=== PATIENT | female | born 1970 | race Caucasian/White ===

== ENCOUNTER → 2016-06-27 | Outpatient (REF) | payer MEDICARE, OTHER | LOC: M SFHCLERA 11:53 | PROVIDERS: ATTEND Nurse Practitioner Family | DX: R30.0 Dysuria (principal); B37.9 Candidiasis, unspecified; R10.30 Lower abdominal pain, unspecified; R61 Generalized hyperhidrosis; R68.83 Chills (without fever); R19.7 Diarrhea, unspecified; R11.0 Nausea; Z79.899 Other long term (current) drug therapy | CPT/HCPCS: 81002; 87086; 87491; 87591; G0463 ==

== ENCOUNTER → 2016-06-28 | Outpatient (REF) | payer MEDICARE, OTHER | END | disposition home or self-care (01) | LOC: M SFHCLERA 13:56 | PROVIDERS: ATTEND Family Medicine | DX: R30.0 Dysuria (principal) ==

== ENCOUNTER → 2016-07-06 | Outpatient (REF) | payer MEDICARE, OTHER ==
[2016-07-06 11:44] LABS: CALCIUM OXALATE CRYSTALS SMALL
[2016-07-06 12:16] LABS: ALBUMIN 3.7 GM/DL (3.2-5.2); ANION GAP 8 MEQ/L (8-16); BLOOD UREA NITROGEN 14 MG/DL (7-18); CALCIUM LEVEL 8.8 MG/DL (8.5-10.1); CARBON DIOXIDE LEVEL 25 MEQ/L (21-32); CHLORIDE LEVEL 112 MEQ/L (98-107); CREATININE FOR GFR 0.89 MG/DL (0.55-1.02); GLOMERULAR FILTRATION RATE > 60.0 (>58); GLUCOSE, FASTING 63 MG/DL (70-105); PHOSPHORUS LEVEL 2.1 MG/DL (2.5-4.9); POTASSIUM SERUM 4.5 MEQ/L (3.5-5.1); SODIUM LEVEL 145 MEQ/L (136-145)
== END ==
LOC: M SFHCLERA 09:12
PROVIDERS: ATTEND Family Medicine
DX: R31.9 Hematuria, unspecified (principal)
CPT/HCPCS: 80069; 81001; G0463

== ENCOUNTER → 2016-08-08 | Outpatient (REF) | payer MEDICARE, OTHER | LOC: M SFHCLERA 16:02 | PROVIDERS: ATTEND Nurse Practitioner Family | DX: J11.1 Influenza due to unidentified influenza virus with other respiratory manifestations (principal) ==

== ENCOUNTER → 2016-09-03 | Outpatient (CLI) | payer MEDICARE, OTHER ==
--- NOTE | 2016-09-03 14:55 | REP ---
Clinical: Pain with recent hyperextension injury. Technique: AP, lateral, bilateral oblique, and sunrise views of the right knee. Findings: Mild age-related changes are appreciated. No acute fracture or dislocation. No significant overt osteoarthritic degenerative changes. No obvious effusion. Impression: Age-related changes noted. No acute fracture or dislocation. Signed by Hussein Luciano MD 09/03/2016 02:47 P
== END ==
LOC: M LRY 14:09
PROVIDERS: ATTEND Family Medicine
DX: M17.11 Unilateral primary osteoarthritis, right knee (principal)
CPT/HCPCS: 73564; G0463

== ENCOUNTER → 2016-09-19 | Outpatient (CLI) | payer MEDICARE, OTHER ==
--- NOTE | 2016-09-19 12:42 | REP ---
MRI RIGHT KNEE WITHOUT CONTRAST: 09/19/2016. Comparison: x-ray 09/03/2016. Clinical history: Knee pain and swelling. Clinical exam suggests LCL and lateral meniscal tear. Technique: Axial fat suppressed PD with coronal PD, fat suppressed PD, sagittal PD, T2 STIR and gradient echo images. Both the ACL and PCL show intact fibers along their course. Some slight increased signal in distal fibers of the ACL may reflect strain but there is no definite complete tear. There is abundant fluid in the joint within the intercondylar notch, medial and lateral compartments as well as into the suprapatellar bursa and its recesses. The medial meniscus shows intrameniscal grade 1 signal posterior horn. There is some fluid posterior to the posterior horn and deep to the capsule suggesting meniscocapsular injury. There is no signal communicating to an articular surface of the medial meniscus that would suggest a tear. There is no loose body or bucket-handle injury. MCL intact. There is bowing of the medial patellar retinaculum due to effusion and suprapatellar bursa extending into bursal recess adjacent to the femoral condyle. Some attenuation of the patellar retinaculum noted. There is a popliteal fossa cyst along the medial head of the gastrocnemius behind the medial femoral condyle. This is felt related to that meniscal capsular injury. Grade 1 chondromalacia without osteochondral defect, bone bruise or fracture noted. The lateral compartment shows some intrameniscal grade 1 signal in the anterior and posterior horns. There is no definite tear of the lateral meniscus or its attachments. I see no loose body. There is chondromalacia grade 1 in the femoral condyle and tibial plateau. No adjacent bone bruise. There is one focal chondral defect anteriorly without a loose body. The lateral collateral ligamentous complex show no definite tear but there is fluid deep to the lateral patellar retinaculum. Bowing of the lateral patellar retinaculum due to large amount of fluid in the bursal recess deep to the retinaculum and adjacent to the lateral femoral condyle. Large suprapatellar bursa without a definite plica. There is chondromalacia grade 2-3 in the lateral facet and grade 1 medial facet. No patellar subluxation or fracture. There is a suprapatellar plica just medial to the midline. Extensor mechanism shows quadriceps and patellar tendons intact. Impression: 1. Extensive joint effusion all throughout the knee and suprapatellar bursa, its recesses, intercondylar notch and the medial lateral compartments. There is a small chondral defect anteriorly in the lateral tibial plateau without loose body, grade 1 chondromalacia in the medial lateral compartments otherwise. 2. Mild strain distal fibers ACL with the ACL and PCL intact with contiguous fibers and no tear. 3. Meniscocapsular injury with fluid deep to the capsule and behind the posterior horn of the medial meniscus, there is a popliteal fossa cyst behind that medial femoral condyle quite large, and felt related to that meniscocapsular injury. 4. MCL intact. LCL with strain but no definite tear and both retinacula bowed by suprapatellar bursa effusion. Chondromalacia is most severe patellofemoral joint with a few millimeters patella subluxation laterally. No bone bruise or fracture. Signed by Gaurav Gonzalez MD 09/19/2016 08:25 P
== END ==
LOC: M RAD 08:14
PROVIDERS: ATTEND Family Medicine
DX: M25.561 Pain in right knee (principal)

== ENCOUNTER 2016-11-07 05:09 | Emergency (ER) | payer MEDICARE, OTHER ==
[~2016-11-07] VITALS: Ht 160 cm; Wt 69.9 kg
[2016-11-07] MEDS ORDERED: DEPA250T32 PO (05:35)
[2016-11-07] MEDS ORDERED: BACL10TA2 PO (05:35)
[2016-11-07] MEDS ORDERED: TOPA50TA7 PO (05:35)
[2016-11-07] MEDS ORDERED: OMEP40CA2 PO (05:35)
[2016-11-07] MEDS ORDERED: CENTTAB36 PO (05:35)
[2016-11-07] MEDS ORDERED: WELL100T2 PO (05:35)
[2016-11-07] MEDS ORDERED: CALC500C8 PO (05:35)
[2016-11-07] MEDS ORDERED: pain medication (05:36)
[2016-11-07] MEDS ORDERED: NS 1,000 ML IV ONE (06:00)
[2016-11-07 06:29] LABS: BASO % 0.3 % (0.0-1.0); EOS % 0.4 % (0.0-3.0); LARGE UNSTAINED CELL # 0.1 K/mm3 (0.0-0.4); LARGE UNSTAINED CELL % 0.7 % (0.0-4.0); LYMPH % 10.1 % (24.0-44.0); MEAN CORPUSCULAR HEMOGLOBIN 32.6 pg (27.0-33.0); MEAN CORPUSCULAR HGB CONC 33.9 g/dl (32.0-36.5); MEAN CORPUSCULAR VOLUME 96.1 fl (80.0-96.0); MONO # 0.3 K/mm3 (0.0-0.8); MONO % 2.7 % (0.0-5.0); NEUTROPHILS # 8.4 K/mm3 (1.8-7.7); NEUTROPHILS % 85.8 % (36.0-66.0); PLATELET COUNT, AUTOMATED 234 k/mm3 (150-450); RED CELL DISTRIBUTION WIDTH 11.6 % (11.5-14.5); WHITE BLOOD COUNT 9.8 K/mm3 (4.0-10.0)
[2016-11-07] MEDS ORDERED: ONDANSETRON 4MG/2ML VIAL (J2405) IV ONE (06:30)
[2016-11-07 06:45] LABS: ALBUMIN 3.9 GM/DL (3.2-5.2); ALBUMIN/GLOBULIN RATIO 1.15 (1.00-1.93); ALKALINE PHOSPHATASE 75 U/L (45-117); ALT/SGPT 26 U/L (12-78); AMYLASE 81 U/L (25-115); ANION GAP 9 MEQ/L (8-16); AST/SGOT 14 U/L (15-37); BILIRUBIN,DIRECT 0.2 MG/DL (0.0-0.2); BILIRUBIN,TOTAL 0.7 MG/DL (0.2-1.0); BLOOD UREA NITROGEN 15 MG/DL (7-18); CALCIUM LEVEL 9.3 MG/DL (8.5-10.1); CARBON DIOXIDE LEVEL 23 MEQ/L (21-32); CHLORIDE LEVEL 108 MEQ/L (98-107); CREATININE FOR GFR 0.99 MG/DL (0.55-1.02); GLOMERULAR FILTRATION RATE > 60.0 (>58); GLUCOSE, FASTING 175 MG/DL (70-105); POTASSIUM SERUM 3.9 MEQ/L (3.5-5.1); SODIUM LEVEL 140 MEQ/L (136-145); TOTAL PROTEIN 7.3 GM/DL (6.4-8.2)
[2016-11-07] MEDS ORDERED: METOCLOPRAMIDE INJ 10MG/2ML VIAL (J2765) IV ONE (07:15)
[2016-11-07] MEDS ORDERED: GI COCKTAIL 50ML BTL(HYOSCYAMINE/MAALOX/LIDOCAINE VISCOUS)(1:3:1) PO ONE (07:15)
[2016-11-07] MEDS ORDERED: PANTOPRAZOLE 40MG INJ (PROTONIX) (C9113) IV ONE (08:30)
--- NOTE | 2016-11-07 08:54 | REP ---
Clinical: Epigastric and abdominal pain. Technique: Upright view of the chest with supine and upright views of the abdomen and pelvis. Findings: Frontal upright view of the chest demonstrates no acute cardiopulmonary process or free air below the diaphragm to suspect pneumoperitoneum. Supine and upright views of the abdomen and pelvis demonstrate nonspecific bowel gas pattern without obstruction or perforation. No organomegaly. No abnormal calcifications. Evidence for prior lumbosacral laminectomy and fixation. Impression: Nonspecific bowel gas pattern. Signed by Hussein Luciano MD 11/07/2016 08:46 A
[2016-11-07] MEDS ORDERED: ZOFR4TAB3 PO (09:12)
[2016-11-07 09:28] VITALS: BP 135/77
== END 2016-11-07 09:29 | disposition home or self-care (01) ==
LOC: M ED 07:23
DX: R11.2 Nausea with vomiting, unspecified (principal); Z98.84 Bariatric surgery status; R51 Headache; E03.9 Hypothyroidism, unspecified; G89.29 Other chronic pain; F32.9 Major depressive disorder, single episode, unspecified; Z79.899 Other long term (current) drug therapy; Z88.8 Allergy status to other drugs, medicaments and biological substances; Z88.5 Allergy status to narcotic agent
CPT/HCPCS: 74022; 80048; 80076; 81001; 82150; 83690; 85025; 87086; 96361; 96374; 96375; 99283; C9113; J2405; J2765

== ENCOUNTER → 2017-04-08 | Outpatient (REF) | payer MEDICARE, OTHER ==
[~2017-04-08] MED LIST: BACL10TA2 PO; CALC500C8 PO; CENTTAB36 PO; DEPA250T32 PO; OMEP40CA2 PO; TOPA50TA8 PO; WELL100T2 PO; ZOFR4TAB3 PO; pain medication
== END ==
LOC: M SFHCLERA 17:44
PROVIDERS: ATTEND Family Medicine
DX: Z12.4 Encounter for screening for malignant neoplasm of cervix (principal); R87.610 Atypical squamous cells of undetermined significance on cytologic smear of cervix (ASC-US)
CPT/HCPCS: 87624; G0123; G0463

== ENCOUNTER → 2017-05-18 | Outpatient (REF) | payer MEDICARE, OTHER ==
[2017-05-18 18:41] LABS: ALBUMIN 3.7 GM/DL (3.2-5.2); ALBUMIN/GLOBULIN RATIO 1.19 (1.00-1.93); ALKALINE PHOSPHATASE 72 U/L (45-117); ALT/SGPT 32 U/L (12-78); ANION GAP 7 MEQ/L (8-16); AST/SGOT 13 U/L (7-37); BILIRUBIN,TOTAL 0.5 MG/DL (0.2-1.0); BLOOD UREA NITROGEN 17 MG/DL (7-18); CARBON DIOXIDE LEVEL 27 MEQ/L (21-32); CHLORIDE LEVEL 107 MEQ/L (98-107); GLOMERULAR FILTRATION RATE > 60.0 (>58); GLUCOSE, FASTING 84 MG/DL (70-105); POTASSIUM SERUM 4.7 MEQ/L (3.5-5.1); SODIUM LEVEL 141 MEQ/L (136-145); TOTAL PROTEIN 6.8 GM/DL (6.4-8.2)
[2017-05-18 19:00] LABS: MEAN CORPUSCULAR HEMOGLOBIN 32.8 pg (27.0-33.0); MEAN CORPUSCULAR HGB CONC 33.4 g/dl (32.0-36.5); MEAN CORPUSCULAR VOLUME 98.1 fl (80.0-96.0); PLATELET COUNT, AUTOMATED 234 10^3/uL (150-450); RED CELL DISTRIBUTION WIDTH 11.5 % (11.5-14.5); WHITE BLOOD COUNT 6.6 10^3/uL (4.0-10.0)
== END ==
LOC: M SFHCLERA 11:51
PROVIDERS: ATTEND Family Medicine
DX: F60.3 Borderline personality disorder (principal); E03.9 Hypothyroidism, unspecified; M54.2 Cervicalgia; G43.709 Chronic migraine without aura, not intractable, without status migrainosus; J31.0 Chronic rhinitis; K21.9 Gastro-esophageal reflux disease without esophagitis
CPT/HCPCS: 80053; 84443; 85027; G0463

== ENCOUNTER → 2017-07-26 | Outpatient (REF) | payer MEDICARE, OTHER ==
[2017-07-27 13:41] LABS: INFLUENZA A AMPLIFICATION NEGATIVE (NEGATIVE); INFLUENZA B AMPLIFICATION NEGATIVE (NEGATIVE)
== END ==
LOC: M SFHCLERA 13:12
DX: J02.9 Acute pharyngitis, unspecified (principal); R68.89 Other general symptoms and signs
CPT/HCPCS: 87502

== ENCOUNTER → 2017-08-31 | Outpatient (REF) | payer MEDICARE, OTHER | LOC: M SFHCLERA 12:36 | DX: J02.9 Acute pharyngitis, unspecified (principal) ==

== ENCOUNTER 2017-09-23 09:35 | Emergency (ER) | payer MEDICARE, OTHER ==
[2017-09-23] MEDS: HYDROmorphone HCL 1 MG/ML SYRINGE (J1170) IV (12:17)
[2017-09-23] MEDS: ONDANSETRON 4MG/2ML VIAL (J2405) IV (12:17)
[2017-09-23] MEDS: NS 1,000 ML IV (12:17)
[2017-09-23 12:23] LABS: KETONE, URINE AUTO RFX NEGATIVE (NEGATIVE); LEUKOCYTE ESTERASE UR AUTO RFX NEGATIVE (NEGATIVE); MUCUS, URINE RFX SMALL (NEGATIVE); NITRITE, URINE AUTO RFX NEGATIVE (NEGATIVE); RBC, URINE AUTO RFX 56 /HPF (0-3); SPECIFIC GRAVITY UR AUTO RFX 1.009 (1.002-1.035); SQUAM EPITHELIAL CELL UR AURFX 1 /HPF (0-6); WBC, URINE AUTO RFX 10 /HPF (0-3)
[2017-09-23 12:25] LABS: BASO % 0.5 % (0.0-1.0); EOS # 0.1 10^3/uL (0.0-0.50); HEMATOCRIT 38.3 % (36.0-47.0); HEMOGLOBIN 13.3 g/dl (12.0-15.5); IMMATURE GRANULOCYTE % 0.3 % (0-3.0); LYMPH # 1.6 10^3/uL (1.5-4.5); LYMPH % 25.2 % (24.0-44.0); MEAN CORPUSCULAR HEMOGLOBIN 31.7 pg (27.0-33.0); MEAN CORPUSCULAR HGB CONC 34.7 g/dl (32.0-36.5); MEAN CORPUSCULAR VOLUME 91.2 fl (80.0-96.0); MONO # 0.4 10^3/uL (0.0-0.8); MONO % 6.2 % (0.0-5.0); NEUTROPHILS # 4.3 10^3/uL (1.8-7.7); NEUTROPHILS % 65.8 % (36.0-66.0); PLATELET COUNT, AUTOMATED 251 10^3/uL (150-450); RED CELL DISTRIBUTION WIDTH 11.6 % (11.5-14.5); WHITE BLOOD COUNT 6.5 10^3/uL (4.0-10.0)
[2017-09-23 12:50] LABS: ALBUMIN 4.1 GM/DL (3.2-5.2); ALBUMIN/GLOBULIN RATIO 1.08 (1.00-1.93); ALKALINE PHOSPHATASE 81 U/L (45-117); ALT/SGPT 42 U/L (12-78); ANION GAP 9 MEQ/L (8-16); AST/SGOT 22 U/L (7-37); BILIRUBIN,DIRECT 0.1 MG/DL (0.0-0.2); BILIRUBIN,TOTAL 0.5 MG/DL (0.2-1.0); BLOOD UREA NITROGEN 14 MG/DL (7-18); CARBON DIOXIDE LEVEL 23 MEQ/L (21-32); CHLORIDE LEVEL 109 MEQ/L (98-107); CREATININE FOR GFR 0.89 MG/DL (0.55-1.30); GLOMERULAR FILTRATION RATE > 60.0 (>58); GLUCOSE, FASTING 86 MG/DL (70-100); POTASSIUM SERUM 3.5 MEQ/L (3.5-5.1); SODIUM LEVEL 141 MEQ/L (136-145); TOTAL PROTEIN 7.9 GM/DL (6.4-8.2)
[2017-09-23] MEDS: CIPROFLOXACIN 500 MG TAB PO (14:33)
[2017-09-23] MEDS: PHENAZOPYRIDINE 100 MG TAB PO (14:33)
== END 2017-09-23 14:34 | disposition home or self-care (01) ==
LOC: M ED 09:35
DX: N30.01 Acute cystitis with hematuria (principal); J45.909 Unspecified asthma, uncomplicated; E07.9 Disorder of thyroid, unspecified; Z79.82 Long term (current) use of aspirin; Z79.899 Other long term (current) drug therapy; Z98.0 Intestinal bypass and anastomosis status; Z98.890 Other specified postprocedural states; Z88.5 Allergy status to narcotic agent; Z88.8 Allergy status to other drugs, medicaments and biological substances; Z88.1 Allergy status to other antibiotic agents; Z88.2 Allergy status to sulfonamides
CPT/HCPCS: J1170

== ENCOUNTER → 2017-11-18 | Outpatient (REF) | payer MEDICARE, OTHER | LOC: M SFHCLERA 11:48 | DX: R30.0 Dysuria (principal); E03.9 Hypothyroidism, unspecified | CPT/HCPCS: 84443 ==

== ENCOUNTER → 2018-03-20 | Outpatient (CLI) | payer MEDICARE, OTHER | LOC: M LRY 11:25 | DX: S99.922A Unspecified injury of left foot, initial encounter (principal); S99.912A Unspecified injury of left ankle, initial encounter; X58.XXXA Exposure to other specified factors, initial encounter; Y92.89 Other specified places as the place of occurrence of the external cause | CPT/HCPCS: 73610; 87880 ==

== ENCOUNTER → 2018-03-20 | Outpatient (REF) | payer MEDICARE, OTHER | LOC: M SFHCLERA 10:56 | DX: J02.9 Acute pharyngitis, unspecified (principal) ==

== ENCOUNTER → 2018-06-27 | Outpatient (REF) | payer MEDICARE, OTHER ==
[~2018-06-27] MED LIST changes: +BIOT10008 PO; +CIPR-249 PO; +CRAN400C PO; +DIFL200T PO; +FIBE1CHW3 PO; +FLUT1INH3 IN; +LEVO75TA4 PO; +MAGN1TAB25 PO; +MAXA10TA14 PO; +MOME50SP2 NARES; +OMEP20CA3 PO; +PYRI1TAB5 PO; +RIBO400T PO; +TIZA4CAP PO; +VIAC8.5C PO; +VITA500T PO; +ZOFR4TAB14 PO; -ZOFR4TAB3 PO; +ZYRT10CA5 PO
== END ==
LOC: M SFHCLERA 12:21
PROVIDERS: ATTEND Family Medicine
DX: E03.9 Hypothyroidism, unspecified (principal)
CPT/HCPCS: 84443; G0463

== ENCOUNTER → 2018-12-26 | Outpatient (REF) | payer MEDICARE, OTHER ==
[~2018-12-26] MED LIST changes: -MAGN1TAB25 PO; +MAGN1TAB26 PO; -OMEP20CA3 PO; +OMEP20CA4 PO; -VIAC8.5C PO; +VIACTIV 500-5001 CHW PO
[2018-12-26 17:14] LABS: FERRITIN 36 NG/ML (8-252); IRON (FE) 129 UG/DL (50-170); PERCENT SATURATION 40.2 % (13.2-45.0); TOTAL IRON BINDING CAPACITY 321 UG/DL (250-450)
[2018-12-26 17:15] LABS: FOLATE > 24.0 NG/ML; TOTAL 25(OH) VITAMIN D 44.2 NG/ML (30.0-100.0); VITAMIN B12 LEVEL 809 PG/ML
[2018-12-26 17:16] LABS: HEMOGLOBIN A1c 4.5 %
[2018-12-30 14:07] LABS: VITAMIN B1 LEVEL WHOLE BLOOD 140.6 nmol/L (66.5-200.0)
== END ==
LOC: M SFHCLERA 10:58
PROVIDERS: ATTEND Family Medicine
DX: E03.9 Hypothyroidism, unspecified (principal); Z98.84 Bariatric surgery status; F60.3 Borderline personality disorder
CPT/HCPCS: 82306; 82607; 82728; 82746; 83036; 83550; 84425; 84443; 84630; G0463

== ENCOUNTER → 2019-01-09 | Outpatient (CLI) | payer MEDICARE, OTHER ==
[~2019-01-09] MED LIST changes: +PROHANCE 279.3MG/ML 15ML VIAL (A9576) As Ordered ONE
--- NOTE | 2019-01-10 08:45 | REP ---
Bilateral breast MRI study without and with IV gadolinium: History: High risk breast cancer screening study. Comparison mammography January 14, 2016. The patient gives a history of palpable lumps. I am not informed of their location. Technique: 3 Kristel MRI imaging was performed with a dedicated breast coil. Axial, coronal, and sagittal T1 and T2-weighted scans were obtained with and without fat saturation in the usual fashion. The study includes dynamically acquired post gadolinium enhanced imaging subtraction imaging. Maximal intensity projection and multiplanar re-formation imaging is included as well. The study was interpreted with the aid of WebyogD, an FDA approved computer-aided detection (CAD) software program, on a dedicated breast MRI work station. The gadolinium enhancement dose is 15 ml of intravenous ProHance. Findings: There is no evidence of axillary lymphadenopathy. There is a mild pattern of fibroglandular tissue bilaterally. High-resolution pre and post T1 and T2-weighted scans show no suspicious morphologic abnormality in either breast. Dynamically acquired sequential post contrast imaging shows no suspicious area of enhancement and/or washout on either side. Subtraction images are unremarkable. Impression: BIRADS category one negative bilateral breast MRI scanning. Clinical follow-up is advised given that the patient provides a history of palpable lumps. Patient's whose estimated lifetime breast cancer risk assessment score is greater than 20% merit annual screening breast MRI scanning in addition to screening mammography. Electronically Signed by Renan Shaw MD 01/10/2019 09:59 A
== END ==
LOC: M RAD 15:24
PROVIDERS: ATTEND Family Medicine
DX: N60.11 Diffuse cystic mastopathy of right breast (principal); N60.12 Diffuse cystic mastopathy of left breast; Z91.89 Other specified personal risk factors, not elsewhere classified; Z80.3 Family history of malignant neoplasm of breast
CPT/HCPCS: 77047; A9576

== ENCOUNTER → 2019-10-24 | Outpatient (REF) | payer MEDICARE, OTHER ==
[~2019-10-24] MED LIST changes: +OMEP1CAP73 PO; -OMEP20CA4 PO; -OMEP40CA2 PO; +OMEP40CA97 PO; -PROHANCE 279.3MG/ML 15ML VIAL (A9576) As Ordered ONE; +VITA-243 PO; -VITA500T PO
== END ==
LOC: M SFHCLERA 08:44
PROVIDERS: ATTEND Family Medicine
DX: Z12.4 Encounter for screening for malignant neoplasm of cervix (principal)
CPT/HCPCS: 87624; G0123

== ENCOUNTER → 2019-12-08 | Outpatient (REF) | payer MEDICARE, OTHER ==
[2019-12-08 16:53] LABS: BASO % 0.4 % (0.0-1.0); EOS # 0.1 10^3/uL (0.0-0.5); EOS % 1.6 % (0.0-3.0); HEMATOCRIT 38.8 % (36.0-47.0); HEMOGLOBIN 13.1 g/dl (12.0-15.5); LYMPH # 2.3 10^3/uL (1.5-5.0); LYMPH % 32.4 % (24.0-44.0); MEAN CORPUSCULAR HEMOGLOBIN 31.6 pg (27.0-33.0); MEAN CORPUSCULAR HGB CONC 33.8 g/dl (32.0-36.5); MEAN CORPUSCULAR VOLUME 93.7 fl (80.0-96.0); MONO # 0.5 10^3/uL (0.0-0.8); NEUTROPHILS # 4.1 10^3/uL (1.5-8.5); NEUTROPHILS % 58.3 % (36.0-66.0); PLATELET COUNT, AUTOMATED 253 10^3/uL (150-450); RED BLOOD COUNT 4.14 10^6/uL (4.00-5.40)
[2019-12-08 17:09] LABS: ALBUMIN 3.8 GM/DL (3.2-5.2); ALT/SGPT 22 U/L (12-78); BILIRUBIN,TOTAL 0.5 MG/DL (0.2-1.0); BLOOD UREA NITROGEN 16 MG/DL (7-18); CALCIUM LEVEL 9.3 MG/DL (8.5-10.1); CARBON DIOXIDE LEVEL 26 MEQ/L (21-32); CHLORIDE LEVEL 109 MEQ/L (98-107); CREATININE FOR GFR 1.02 MG/DL (0.55-1.30); GLOMERULAR FILTRATION RATE > 60.0 (>51); GLUCOSE, FASTING 76 MG/DL (70-100); IRON (FE) 105 UG/DL (50-170); POTASSIUM SERUM 4.4 MEQ/L (3.5-5.1); SODIUM LEVEL 141 MEQ/L (136-145); TOTAL 25(OH) VITAMIN D 61.7 NG/ML (30.0-100.0); TOTAL IRON BINDING CAPACITY 300 UG/DL (250-450); TOTAL PROTEIN 6.9 GM/DL (6.4-8.2)
[2019-12-11 10:31] LABS: VITAMIN B12 LEVEL 863 PG/ML (247-911)
== END ==
LOC: M SFHCLERA 11:51
PROVIDERS: ATTEND Family Medicine
DX: E03.9 Hypothyroidism, unspecified (principal); Z98.84 Bariatric surgery status; D50.9 Iron deficiency anemia, unspecified

== ENCOUNTER → 2020-07-24 | Outpatient (CLI) | payer MEDICARE, OTHER ==
[2020-07-24 15:17] LABS: BASO % 0.5 % (0.0-1.0); EOS # 0.2 10^3/uL (0.0-0.5); EOS % 2.3 % (0.0-3.0); HEMATOCRIT 40.4 % (36.0-47.0); HEMOGLOBIN 13.9 g/dl (12.0-15.5); LYMPH # 2.3 10^3/uL (1.5-5.0); MEAN CORPUSCULAR HEMOGLOBIN 31.7 pg (27.0-33.0); MEAN CORPUSCULAR HGB CONC 34.4 g/dl (32.0-36.5); MONO # 0.6 10^3/uL (0.0-0.8); MONO % 6.4 % (0.0-5.0); NEUTROPHILS # 5.7 10^3/uL (1.5-8.5); NEUTROPHILS % 64.5 % (36.0-66.0); PLATELET COUNT, AUTOMATED 285 10^3/uL (150-450); RED BLOOD COUNT 4.39 10^6/uL (4.00-5.40); WHITE BLOOD COUNT 8.9 10^3/uL (4.0-10.0)
[2020-07-24 15:43] LABS: ALBUMIN 4.1 GM/DL (3.2-5.2); BILIRUBIN,TOTAL 0.5 MG/DL (0.2-1.0); CALCIUM LEVEL 9.6 MG/DL (8.5-10.1); CHOLESTEROL RISK RATIO 3.687 (<5); CREATININE FOR GFR 1.06 MG/DL (0.55-1.30); GLOMERULAR FILTRATION RATE 58.4 (>51); MAGNESIUM LEVEL 2.1 MG/DL (1.8-2.4); POTASSIUM SERUM 4.1 MEQ/L (3.5-5.1); TOTAL PROTEIN 7.4 GM/DL (6.4-8.2)
[2020-07-24 15:50] LABS: TOTAL 25(OH) VITAMIN D 43.3 NG/ML (30.0-100.0)
== END ==
LOC: M LAB 14:49
PROVIDERS: ATTEND Family Medicine
DX: E03.9 Hypothyroidism, unspecified (principal); Z13.220 Encounter for screening for lipoid disorders; Z98.84 Bariatric surgery status; Z79.899 Other long term (current) drug therapy

== ENCOUNTER → 2020-08-12 | Outpatient (CLI) | payer MEDICARE, OTHER ==
--- NOTE | 2020-08-12 13:52 | REPMRS ---
Patient History The patient states she had a clinical breast exam in March 2020. Patient had first child at age 30. Family history of breast cancer at age 65 in mother. 3D TOMOSYNTHESIS WAS PERFORMED. Volpara breast density b. Digital Woman Screen Mammo: August 12, 2020 - Exam #: [id number] Bilateral CC and MLO view(s) were taken. Technologist: RT Phi Prior study comparison: January 14, 2016, bilateral digital mammo screening bilat, performed at [facility]. 2009, digital bilateral screening mammo, performed at [facility]. FINDINGS: There are scattered fibroglandular densities. There has been no change in the appearance of the mammogram from the prior studies. There is a mild amount of residual fibroglandular tissue which is fairly symmetric. There is no interval development of dominant mass, architectural distortion, or clustered microcalcification suggestive of malignancy. Assessment: BI-RADS/ACR category 1 mammogram. Negative Mammogram. Recommendation Routine screening mammogram in 1 year (for women over age 40). This mammogram was interpreted with the aid of an FDA-approved computer-aided dectection system. THE LIFETIME RISK OF BREAST CANCER IS 26.6%, THEREFORE SUPPLEMENTAL SCREENING MRI OF THE BREASTS IS RECOMMENDED IN 6 MONTHS. Electronically Signed By: Leighton Melton MD 08/12/20 0529
== END ==
LOC: M WHC 12:53
PROVIDERS: ATTEND Family Medicine
DX: Z12.31 Encounter for screening mammogram for malignant neoplasm of breast (principal); Z80.3 Family history of malignant neoplasm of breast

== ENCOUNTER → 2021-03-04 | Outpatient (CLI) | payer MEDICARE, OTHER ==
[~2021-03-04] MED LIST changes: +OMEP40CA4 PO; -OMEP40CA97 PO; +PROHANCE 279.3MG/ML 15ML VIAL As Ordered ONE; +PROHANCE 279.3MG/ML 5ML VIAL As Ordered ONE
--- NOTE | 2021-03-04 12:18 | REP ---
INDICATION: SCREENING. COMPARISON: Comparison mammography August 12, 2020. Comparison MRI study is dated January 09, 2019. TECHNIQUE: Three Kristel MRI imaging was performed with a dedicated breast coil. Axial, coronal, and sagittal T1 and T2 weighted scans were obtained with and without fat saturation in the usual fashion. The study includes dynamically acquired post gadolinium-enhanced imaging with image subtraction. Maximum intensity projection and multi planar reformation imaging is included as well. This study is interpreted with the aid of naaptol, an FDA approved computer aided detection (CAD) software program, on a dedicated breast MRI workstation. The gadolinium enhancement dose is 15 mL of intravenous ProHance. FINDINGS: There is a mild amount of fibroglandular tissue bilaterally corresponding with the mammographic pattern. There is mild background parenchymal enhancement. There is no evidence of axillary lymphadenopathy or significant breast cystic change. High-resolution pre and post-contrast T1 and T2 weighted scans show no suspicious morphologic abnormality in either breast. Dynamically acquired sequential postcontrast images show no suspicious area of enhancement and washout kinetics in either breast to suggest malignancy. Subtraction images show no additional abnormality. IMPRESSION: BI-RADS category 1 negative bilateral breast MRI findings. <Electronically signed by Noel Shaw > 03/04/21 3027
== END ==
LOC: M RAD 10:45
PROVIDERS: ATTEND Family Medicine
DX: R92.2 Inconclusive mammogram (principal)
CPT/HCPCS: A9576; C8908

== ENCOUNTER → 2021-06-30 | Outpatient (REF) ==
[~2021-06-30] MED LIST changes: -PROHANCE 279.3MG/ML 15ML VIAL As Ordered ONE; -PROHANCE 279.3MG/ML 5ML VIAL As Ordered ONE
== END ==
LOC: M LABSMTC 12:51
PROVIDERS: ATTEND Pediatrics
DX: Z20.822 Contact with and (suspected) exposure to COVID-19 (principal)

== ENCOUNTER → 2021-07-12 | Outpatient (REF) | LOC: M LABSMTC 12:58 | PROVIDERS: ATTEND Pediatrics | DX: Z20.822 Contact with and (suspected) exposure to COVID-19 (principal) ==

== ENCOUNTER → 2021-08-15 | Outpatient (REF) | payer MEDICARE, OTHER | LOC: M SFHCCLAY 13:56 | PROVIDERS: ATTEND Physician Assistant | DX: R30.0 Dysuria (principal) ==

== ENCOUNTER → 2021-08-18 | Outpatient (CLI) | payer MEDICARE, OTHER ==
[2021-08-18 16:04] LABS: BASO # 0.1 10^3/uL (0.0-0.2); BASO % 0.5 % (0.0-1.0); EOS # 0.2 10^3/uL (0.0-0.5); EOS % 2.1 % (0.0-3.0); HEMATOCRIT 38.1 % (36.0-47.0); HEMOGLOBIN 13.2 g/dl (12.0-15.5); LYMPH # 2.1 10^3/uL (1.5-5.0); LYMPH % 20.9 % (24.0-44.0); MEAN CORPUSCULAR HEMOGLOBIN 31.5 pg (27.0-33.0); MEAN CORPUSCULAR HGB CONC 34.6 g/dl (32.0-36.5); MEAN CORPUSCULAR VOLUME 90.9 fl (80.0-96.0); MONO # 0.6 10^3/uL (0.0-0.8); MONO % 6.1 % (2.0-8.0); NEUTROPHILS % 70.1 % (36.0-66.0); PLATELET COUNT, AUTOMATED 284 10^3/uL (150-450); RED BLOOD COUNT 4.19 10^6/uL (4.00-5.40); WHITE BLOOD COUNT 9.9 10^3/uL (4.0-10.0)
[2021-08-18 16:31] LABS: ALBUMIN 3.8 GM/DL (3.2-5.2); ALT/SGPT 25 U/L (12-78); BILIRUBIN,TOTAL 0.4 MG/DL (0.2-1.0); BLOOD UREA NITROGEN 16 MG/DL (7-18); CALCIUM LEVEL 9.1 MG/DL (8.5-10.1); CARBON DIOXIDE LEVEL 23 MEQ/L (21-32); CHLORIDE LEVEL 110 MEQ/L (98-107); CHOLESTEROL LEVEL 172 MG/DL (<200); CHOLESTEROL RISK RATIO 3.245 (<5); CREATININE FOR GFR 0.88 MG/DL (0.55-1.30); FERRITIN 51 NG/ML (8-252); GLOMERULAR FILTRATION RATE > 60.0 (>51); GLUCOSE, FASTING 81 MG/DL (70-100); HDL CHOLESTEROL 53 MG/DL (>40); IRON (FE) 136 UG/DL (50-170); LDL CHOLESTEROL 87 MG/DL (<100); NON-HDL-C 119 MG/DL; PERCENT SATURATION 45.3 % (13.2-45.0); POTASSIUM SERUM 3.9 MEQ/L (3.5-5.1); SODIUM LEVEL 140 MEQ/L (136-145); TOTAL IRON BINDING CAPACITY 300 UG/DL (250-450); TRIGLYCERIDES LEVEL 161 MG/DL (<150)
[2021-08-18 16:41] LABS: HEMOGLOBIN A1c 4.8 %
[2021-08-19 14:15] LABS: TOTAL 25(OH) VITAMIN D 52.2 NG/ML (30.0-100.0)
== END ==
LOC: M LAB 14:21
PROVIDERS: ATTEND Family Medicine
DX: E03.9 Hypothyroidism, unspecified (principal); Z13.1 Encounter for screening for diabetes mellitus; Z13.220 Encounter for screening for lipoid disorders; Z98.84 Bariatric surgery status; Z79.899 Other long term (current) drug therapy

== ENCOUNTER → 2021-08-26 | Outpatient (REF) | payer MEDICARE, OTHER | LOC: M SFHCLERA 11:17 | PROVIDERS: ATTEND Family Medicine | DX: R30.0 Dysuria (principal) ==

== ENCOUNTER → 2021-09-04 | Outpatient (CLI) | payer MEDICARE, OTHER | LOC: M RAD 11:36 | PROVIDERS: ATTEND Family Medicine | DX: R30.0 Dysuria (principal) ==

== ENCOUNTER → 2021-09-18 | Outpatient (REF) | payer MEDICARE, OTHER ==
[2021-09-18 17:36] LABS: APPEARANCE, URINE CLEAR (CLEAR); BACTERIA, URINE AUTO NEGATIVE (NEGATIVE); BILIRUBIN, URINE AUTO NEGATIVE (NEGATIVE); BLOOD, URINE BLOOD NEGATIVE (NEGATIVE); COLOR, URINE YELLOW (YELLOW); GLUCOSE, URINE (UA) AUTO NEGATIVE (NEGATIVE); KETONE, URINE AUTO NEGATIVE (NEGATIVE); LEUKOCYTE ESTERASE, URINE AUTO NEGATIVE (NEGATIVE); NITRITE, URINE AUTO NEGATIVE (NEGATIVE); PROTEIN, URINE AUTO NEGATIVE (NEGATIVE); RBC, URINE AUTO 0 /HPF (0-3); SPECIFIC GRAVITY URINE AUTO 1.008 (1.002-1.035); SQUAMOUS EPITHELIAL CELL UR AU 0 /HPF (0-6); UROBILINOGEN, URINE AUTO 0.2 mg/dL (0.0-2.0); WBC, URINE AUTO 1 /HPF (0-3)
[2021-09-18 19:10] LABS: GC DNA AMPLIFICATION NEGATIVE (NEGATIVE)
== END ==
LOC: M SMT 17:05
PROVIDERS: ATTEND Nurse Practitioner Women's Health
DX: R39.15 Urgency of urination (principal); R39.89 Other symptoms and signs involving the genitourinary system

== ENCOUNTER → 2022-06-22 | Outpatient (CLI) | payer MEDICARE ==
[~2022-06-22] MED LIST changes: -MAXA10TA14 PO; +PROHANCE 279.3MG/ML 15ML VIAL As Ordered ONE; +RIZA10TA64 PO
== END ==
LOC: M RAD 13:11
PROVIDERS: ATTEND Family Medicine
DX: Z12.39 Encounter for other screening for malignant neoplasm of breast (principal); Z80.3 Family history of malignant neoplasm of breast
CPT/HCPCS: A9576; C8908

== ENCOUNTER → 2022-08-25 | Outpatient (CLI) | payer MEDICARE, OTHER ==
[~2022-08-25] MED LIST changes: -PROHANCE 279.3MG/ML 15ML VIAL As Ordered ONE
[2022-08-25 12:07] LABS: BASO % 0.7 % (0.0-1.0); EOS # 0.2 10^3/uL (0.0-0.5); EOS % 3.2 % (0.0-3.0); HEMATOCRIT 43.2 % (36.0-47.0); HEMOGLOBIN 14.3 g/dl (12.0-15.5); LYMPH # 1.9 10^3/uL (1.5-5.0); LYMPH % 31.4 % (24.0-44.0); MEAN CORPUSCULAR HEMOGLOBIN 31.4 pg (27.0-33.0); MEAN CORPUSCULAR HGB CONC 33.1 g/dl (32.0-36.5); MEAN CORPUSCULAR VOLUME 94.9 fl (80.0-96.0); MONO # 0.4 10^3/uL (0.0-0.8); MONO % 5.9 % (2.0-8.0); NEUTROPHILS # 3.5 10^3/uL (1.5-8.5); NEUTROPHILS % 58.5 % (36.0-66.0); PLATELET COUNT, AUTOMATED 242 10^3/uL (150-450); RED BLOOD COUNT 4.55 10^6/uL (4.00-5.40)
[2022-08-25 12:36] LABS: IRON (FE) 84 UG/DL (50-170); PERCENT SATURATION 25.5 % (13.2-45.0); TOTAL IRON BINDING CAPACITY 329 UG/DL (250-425)
[2022-08-25 12:48] LABS: ALKALINE PHOSPHATASE 100 U/L (46-116); ALT/SGPT 19 U/L (7.0-40); AST/SGOT 20 U/L (<34); BILIRUBIN,TOTAL 0.5 MG/DL (0.3-1.2); BLOOD UREA NITROGEN 17 MG/DL (9-23); CALCIUM LEVEL 9.4 MG/DL (8.5-10.1); CARBON DIOXIDE LEVEL 27 MMOL/L (20-31); CHLORIDE LEVEL 108 MMOL/L (98-107); CHOLESTEROL LEVEL 194 MG/DL (<200); CHOLESTEROL RISK RATIO 3.11 (<5); FERRITIN 21.9 NG/ML (7.3-270.7); GLOMERULAR FILTRATION RATE > 60.0 (>51); GLUCOSE, FASTING 84 MG/DL (60-100); HDL CHOLESTEROL 62.3 MG/DL (>40); LDL CHOLESTEROL 104.7 MG/DL (<100); NON-HDL-C 131.7 MG/DL; POTASSIUM SERUM 4.6 MMOL/L (3.5-5.1); SODIUM LEVEL 139 MMOL/L (136-145); THYROID STIMULATING HORMONE 2.517 uIU/ML (0.55-4.78); TOTAL 25(OH) VITAMIN D 50.5 NG/ML (20.0-100.0); TOTAL PROTEIN 6.9 G/DL (5.7-8.2); TRIGLYCERIDES LEVEL 135 MG/DL (<150); VITAMIN B12 LEVEL 636 PG/ML (211-911)
[2022-08-25 14:20] LABS: HEMOGLOBIN A1c 4.9 % (4.0-6.0)
== END ==
LOC: M LAB 11:14
PROVIDERS: ATTEND Family Medicine
DX: E03.9 Hypothyroidism, unspecified (principal); Z98.84 Bariatric surgery status; Z79.899 Other long term (current) drug therapy

== ENCOUNTER → 2022-11-03 | Outpatient (CLI) | payer MEDICARE, OTHER | LOC: M WHC 12:48 | PROVIDERS: ATTEND Family Medicine | DX: Z12.31 Encounter for screening mammogram for malignant neoplasm of breast (principal) ==

== ENCOUNTER → 2023-04-26 | Day surgery (SDC) | payer MEDICARE, OTHER ==
[~2023-04-26] VITALS: Ht 160 cm; Wt 82.2 kg
[~2023-04-26] MED LIST changes: +AJOV225I SC; +BIOT10009 PO; +CALC500C14 PO; +CETI10CA2 PO; +FLON1SPR; +LIDOCAINE 2% 100MG/5ML SDV (FOR ANES.) As Ordered ONE; +NS 1,000 ML IV ONE; +VITMTA PO; +propofoL 200 MG/20 ML VIAL As Ordered ONE
[2023-04-26 10:36] VITALS: TEMP 97.5
[2023-04-26 10:55] VITALS: BP 121/72; O2SAT 100
== END | disposition home or self-care (01) ==
LOC: M OPP 09:09
PROVIDERS: ATTEND Internal Medicine Gastroenterology
DX: Z12.11 Encounter for screening for malignant neoplasm of colon (principal); K57.30 Diverticulosis of large intestine without perforation or abscess without bleeding; K64.8 Other hemorrhoids; Z83.710 Family history of adenomatous and serrated polyps; K58.9 Irritable bowel syndrome, unspecified; E03.9 Hypothyroidism, unspecified; J45.909 Unspecified asthma, uncomplicated; Z90.49 Acquired absence of other specified parts of digestive tract; Z79.899 Other long term (current) drug therapy; Z79.890 Hormone replacement therapy; Z88.8 Allergy status to other drugs, medicaments and biological substances; Z88.2 Allergy status to sulfonamides; Z88.5 Allergy status to narcotic agent; Z90.710 Acquired absence of both cervix and uterus; Z87.891 Personal history of nicotine dependence

== ENCOUNTER → 2023-08-12 | Outpatient (CLI) | payer MEDICARE, OTHER ==
[~2023-08-12] MED LIST changes: -LIDOCAINE 2% 100MG/5ML SDV (FOR ANES.) As Ordered ONE; -NS 1,000 ML IV ONE; -propofoL 200 MG/20 ML VIAL As Ordered ONE
== END ==
LOC: M SOG 08:58
PROVIDERS: ATTEND Physician Assistant
DX: M79.644 Pain in right finger(s) (principal)

== ENCOUNTER → 2023-08-20 | Outpatient (CLI) | payer MEDICARE, OTHER ==
[2023-08-20 13:02] LABS: ALBUMIN 3.9 G/DL (3.2-5.2); ALKALINE PHOSPHATASE 92 U/L (46-116); ALT/SGPT 14 U/L (7.0-40); AST/SGOT 11 U/L (<34); BILIRUBIN,TOTAL 0.6 MG/DL (0.3-1.2); BLOOD UREA NITROGEN 18 MG/DL (9-23); CALCIUM LEVEL 9.1 MG/DL (8.5-10.1); CARBON DIOXIDE LEVEL 26 MMOL/L (20-31); CHLORIDE LEVEL 109 MMOL/L (98-107); CHOLESTEROL LEVEL 178 MG/DL (<200); CHOLESTEROL RISK RATIO 2.83 (<5); CREATININE FOR GFR 0.89 MG/DL (0.55-1.30); GLOMERULAR FILTRATION RATE > 60.0 (>51); GLUCOSE, FASTING 76 MG/DL (60-100); HDL CHOLESTEROL 62.8 MG/DL (>40); NON-HDL-C 115.2 MG/DL; POTASSIUM SERUM 3.7 MMOL/L (3.5-5.1); SODIUM LEVEL 139 MMOL/L (136-145); TOTAL PROTEIN 6.9 G/DL (5.7-8.2); TRIGLYCERIDES LEVEL 106 MG/DL (<150)
[2023-08-20 13:04] LABS: THYROID STIMULATING HORMONE 1.319 uIU/ML (0.55-4.78)
== END ==
LOC: M LAB 11:39
PROVIDERS: ATTEND Family Medicine
DX: E03.9 Hypothyroidism, unspecified (principal); E78.5 Hyperlipidemia, unspecified

== ENCOUNTER 2023-09-28 08:05 | Day surgery (SDC) | payer MEDICARE, OTHER ==
[~2023-09-28] VITALS: Ht 160 cm; Wt 83.0 kg
[~2023-09-28 08:05] MED LIST changes: +APPL300T4 PO; +CVS1CAP5 PO; +LINZ145C PO; +THERTAB52 PO
[2023-09-28] MEDS ORDERED: LR 1,000 ML IV SCH ×2 (08:45→11:10)
[2023-09-28] MEDS: fentaNYL 100 MCG/2 ML INJECTION IV PRN (09:13)
[2023-09-28] MEDS: MIDAZOLAM INJ 2MG/2ML VIAL IV PRN (09:13)
[2023-09-28] MEDS ORDERED: LIDOCAINE 2% INJ 100 MG/5 ML SYRINGE As Ordered ONE (09:16)
[2023-09-28] MEDS ORDERED: propofoL 200 MG/20 ML VIAL As Ordered ONE (09:16)
[2023-09-28] MEDS ORDERED: ONDANSETRON 4MG 2ML VIAL As Ordered ONE (09:17)
[2023-09-28] MEDS ORDERED: KETOROLAC 60MG 2ML VIAL As Ordered ONE (09:18)
[2023-09-28] MEDS: dexAMETHasone 10MG/1ML VIAL PRES.FREE PN ONE (09:20)
[2023-09-28] MEDS: EPINEPHrine INJ 1 MG/ML 1ML AMP PN ONE (09:20)
[2023-09-28] MEDS: ROPIvacaine 0.5% 30ML VIAL PN ONE (09:20)
[2023-09-28] MEDS: LIDOCAINE 1% SDV 5ML VIAL PN ONE (09:20)
[2023-09-28] MEDS: ceFAZolin SOD 2 GM in IV 1 EA IV ONE (09:50)
[2023-09-28] MEDS ORDERED: ACETAMINOPHEN 1000MG 100ML IV BAG As Ordered ONE (09:53)
[2023-09-28] MEDS: BACITRACIN OINTMENT 30GM TUBE As Ordered ONE (10:43)
[2023-09-28] MEDS ORDERED: fentaNYL 100 MCG/2 ML INJECTION IV PRN (11:10)
[2023-09-28] MEDS ORDERED: ONDANSETRON 4MG 2ML VIAL IV PRN (11:10)
[2023-09-28] MEDS ORDERED: PERC5TAB12 PO (11:12)
[2023-09-28 11:35] VITALS: BP 138/85; TEMP 98; O2SAT 98
== END 2023-09-28 12:00 | disposition home or self-care (01) ==
LOC: M SDC 08:05
PROVIDERS: ATTEND Orthopaedic Surgery Hand Surgery
DX: M18.11 Unilateral primary osteoarthritis of first carpometacarpal joint, right hand (principal); Z88.5 Allergy status to narcotic agent; Z88.2 Allergy status to sulfonamides; Z88.8 Allergy status to other drugs, medicaments and biological substances; K57.92 Diverticulitis of intestine, part unspecified, without perforation or abscess without bleeding; E03.9 Hypothyroidism, unspecified; K58.8 Other irritable bowel syndrome; L40.9 Psoriasis, unspecified; M81.0 Age-related osteoporosis without current pathological fracture; F41.9 Anxiety disorder, unspecified; F32.A Depression, unspecified; J45.909 Unspecified asthma, uncomplicated; Z79.899 Other long term (current) drug therapy
CPT/HCPCS: 25447; 76000; 88300; 93005; C1713; J0131; J0665; J0690; J1100; J2250; J2405; J3010

== ENCOUNTER → 2023-10-07 | Outpatient (CLI) | payer MEDICARE, OTHER ==
[~2023-10-07] MED LIST changes: +PERC5TAB12 PO
== END ==
LOC: M SOG 15:22
PROVIDERS: ATTEND Physician Assistant
DX: M79.644 Pain in right finger(s) (principal)

== ENCOUNTER → 2023-11-04 | Outpatient (CLI) | payer MEDICARE, OTHER | LOC: M SOG 07:53 | PROVIDERS: ATTEND Physician Assistant | DX: M79.644 Pain in right finger(s) (principal) ==

== ENCOUNTER → 2023-11-11 | Outpatient (CLI) | payer MEDICARE, OTHER | LOC: M WHC 13:57 | PROVIDERS: ATTEND Family Medicine | DX: Z12.31 Encounter for screening mammogram for malignant neoplasm of breast (principal) ==

== ENCOUNTER → 2023-12-21 | Outpatient (CLI) | payer MEDICARE, OTHER ==
[~2023-12-21] MED LIST changes: -CRAN400C PO; +CRANBERRY400 MG PO
== END ==
LOC: M SOG 07:55
PROVIDERS: ATTEND Physician Assistant
DX: M79.644 Pain in right finger(s) (principal)

== ENCOUNTER → 2024-12-13 | Outpatient (CLI) | payer MEDICARE, OTHER ==
[~2024-12-13] MED LIST changes: -DEPA250T32 PO; +DIVA-65 PO
== END ==
LOC: M WHC 12:26
PROVIDERS: ATTEND Family Medicine
DX: Z12.31 Encounter for screening mammogram for malignant neoplasm of breast (principal)

== ENCOUNTER → 2024-12-22 | Outpatient (CLI) | payer MEDICARE, OTHER ==
[2024-12-22 15:42] LABS: BASO # 0.1 10^3/uL (0.0-0.2); BASO % 0.7 % (0.0-1.0); EOS # 0.1 10^3/uL (0.0-0.5); EOS % 1.7 % (0.0-3.0); LYMPH # 2.3 10^3/uL (1.5-5.0); LYMPH % 33.2 % (24.0-44.0); MONO # 0.4 10^3/uL (0.0-0.8); MONO % 6.0 % (2.0-8.0); NEUTROPHILS # 4.0 10^3/uL (1.5-8.5); NEUTROPHILS % 58.3 % (36.0-66.0); PLATELET COUNT, AUTOMATED 266 10^3/uL (150-450)
[2024-12-22 16:06] LABS: ALT/SGPT 19 U/L (7.0-40); AST/SGOT 20 U/L (<34); CALCIUM LEVEL 9.3 MG/DL (8.5-10.1); CARBON DIOXIDE LEVEL 25 MMOL/L (20-31); CHLORIDE LEVEL 109 MMOL/L (98-107); CHOLESTEROL LEVEL 197 MG/DL (<200); CHOLESTEROL RISK RATIO 3.08 (<5); CREATININE FOR GFR 1.07 MG/DL (0.55-1.30); GLOMERULAR FILTRATION RATE 61.3 (>51); IRON (FE) 107 UG/DL (50-170); LDL CHOLESTEROL 111.1 MG/DL (<100); NON-HDL-C 133.1 MG/DL; PERCENT SATURATION 36.3 % (13.2-45.0); POTASSIUM SERUM 3.7 MMOL/L (3.5-5.1); SODIUM LEVEL 146 MMOL/L (136-145); TRIGLYCERIDES LEVEL 110 MG/DL (<150)
[2024-12-22 16:08] LABS: TOTAL 25(OH) VITAMIN D 51.9 NG/ML (20.0-100.0)
[2024-12-22 16:11] LABS: VITAMIN B12 LEVEL > 2000 PG/ML (211-911)
[2024-12-22 16:38] LABS: ESTIMATED AVERAGE GLUCOSE 80.0 MG/DL (60-110)
== END ==
LOC: M LAB 13:19
PROVIDERS: ATTEND Family Medicine
DX: Z00.00 Encounter for general adult medical examination without abnormal findings (principal); E78.5 Hyperlipidemia, unspecified; E03.9 Hypothyroidism, unspecified; Z98.84 Bariatric surgery status; Z79.899 Other long term (current) drug therapy